=== PATIENT | male | born 1980 | race Caucasian/White ===

== ENCOUNTER 2023-05-27 20:26 | Emergency (ER) | payer MEDICAID ==
[~2023-05-27] VITALS: Ht 177.8 cm; Wt 77.1 kg
[~2023-05-27 20:26] MED LIST: ONDANSETRON 4 MG ODT TAB ONE
[2023-05-27 20:34] VITALS: BP_SYST 140; PULSE 97; RESP 16; TEMP 98.5; O2SAT 95
[2023-05-27] MEDS ORDERED: NACL 0.9% 1,000 ML IV ONE (21:15)
[2023-05-27] MEDS ORDERED: GLUCAGON,HUMAN RECOMBINANT 1 MG VIAL IVP ONE (21:15)
[2023-05-27] MEDS ORDERED: ONDANSETRON HCL 4 MG/2 ML VIAL IVP ONE (21:15)
[2023-05-27] MEDS: ONDANSETRON 4 MG ODT TAB PO ONE (21:24)
[2023-05-27 21:54] VITALS: BP_SYST 113; PULSE 75; RESP 16; TEMP 98.5; O2SAT 98
== END 2023-05-27 21:49 | disposition home or self-care (01) ==
LOC: SED 20:26
DX: T18.128A Food in esophagus causing other injury, initial encounter (principal); E78.5 Hyperlipidemia, unspecified; Z79.899 Other long term (current) drug therapy; W44.8XXA Other foreign body entering into or through a natural orifice, initial encounter
CPT/HCPCS: 99283; Q0162